=== PATIENT | male | born 1925 | race Caucasian/White ===

== ENCOUNTER 2016-06-01 13:12 | Outpatient (CLI) | payer MEDICARE, OTHER ==
[2016-06-01 13:28] LABS: BASOPHILS # (AUTO) 0.1 10^3/uL (0.0-0.1); EOSINOPHILS # (AUTO) 0.2 10^3/uL (0.0-0.7); EOSINOPHILS % (AUTO) 3.2 %; HCT - HEMATOCRIT 41.2 % (42.0-52.0); HGB - HEMOGLOBIN 13.9 g/dL (14.0-18.0); LYMPHOCYTES # (AUTO) 2.1 10^3/uL (1.5-3.5); MEAN CORPUSCULAR HEMOGLOBIN 30.8 pg (27.0-31.0); MEAN CORPUSCULAR HGB CONC 33.8 g/dL (32.0-36.0); MEAN CORPUSCULAR VOLUME 91.1 fL (80.0-94.0); MEAN PLATELET VOLUME 8.8 fL (7.4-11.4); MONOCYTES # (AUTO) 0.5 10^3/uL (0.0-1.0); MONOCYTES % (AUTO) 8.8 %; NEUTROPHILS # (AUTO) 2.6 10^3/uL (1.5-6.6); NUCLEATED RED BLOOD CELLS AUTO 0.9 /100WBC; RED BLOOD COUNT 4.52 10^6/uL (4.70-6.10); RED CELL DISTRIBUTION WIDTH 13.4 % (12.0-15.0); UNCORRECTED WHITE BLOOD COUNT 5.4 x10^3/uL; WHITE BLOOD COUNT 5.4 x10^3/uL (4.8-10.8)
[2016-06-01 13:41] LABS: ALBUMIN/GLOBULIN RATIO 1.7 (1.0-2.2); BILIRUBIN,TOTAL 0.6 mg/dL (0.2-1.0); BUN - BLOOD UREA NITROGEN 27 mg/dL (6-20); CALCIUM 9.4 mg/dL (8.5-10.3); CARBON DIOXIDE - CO2 25 mmol/L (21-32); CHLORIDE 101 mmol/L (101-111); CHOL/HDL RATIO 2.5 (<5.0); CHOLESTEROL 188 mg/dL; CREATININE 0.8 mg/dL (0.6-1.2); GFR - MDRD 91 (>89); GLUCOSE 103 mg/dL (70-100); HDL CHOLESTEROL 74 mg/dL; LDL/HDL RATIO 1.4 (<3.6); POTASSIUM 4.5 mmol/L (3.5-5.0); SODIUM 135 mmol/L (135-145); TOTAL PROTEIN 6.2 g/dL (6.7-8.2); TRIGLYCERIDES 51 mg/dL; VLDL CHOLESTEROL 10 mg/dL
== END 2016-06-01 13:13 | disposition home or self-care (01) ==
LOC: LAB.R 13:12
PROVIDERS: ATTEND Internal Medicine
DX: I10 Essential (primary) hypertension (principal); Z79.899 Other long term (current) drug therapy; E78.2 Mixed hyperlipidemia
CPT/HCPCS: 80053; 80061; 85025

== ENCOUNTER 2016-10-22 15:12 | Outpatient (CLI) | payer MEDICARE, OTHER | END 2016-10-22 23:59 | disposition critical access hospital (66) | LOC: EMS 15:12 | PROVIDERS: ATTEND Surgery | DX: R40.20 Unspecified coma (principal) | CPT/HCPCS: A0425; A0427 ==

== ENCOUNTER 2016-10-22 15:22 | Observation (INO) | payer MEDICARE, OTHER ==
[2016-10-22] MEDS ORDERED: SODIUM CHLORIDE 0.9% 1,000 ML IV ONE (15:36)
--- NOTE | 2016-10-22 15:41 | ED Physician Documentation ---
History of Present Illness - Stated complaint Stated Complaint: ALOC - Chief complaint Chief Complaint: Cardiac - History obtained from History obtained from: Family, EMS - History of Present Illness Timing: Other (89-year-old gentleman with history of hypertension and Hypercholesterolemia, also ongoing tobacco abuse had a normal morning and then told his he felt dizzy and became syncopal. The ambulance was summoned. He was incontinent of bowel and bladder. On lumber sorter machine evaluation he was hypotensive and bradycardic which improved after the administration of 0.5 mg of atropine. He arrives conscious but altered.) Review of Systems Unable to obtain: Confused PD PAST MEDICAL HISTORY - Past Medical History Cardiovascular: Hypertension, High cholesterol GI: Hemorrhoids - Past Surgical History Past Surgical History: Yes HEENT: Cochlear implant - Present Medications Home Medications: Ambulatory Orders Medication Instructions Recorded Confirmed Lisinopril 10 mg PO DAILY 12/20/14 12/20/14 Pravastatin [Pravachol] 40 mg PO DAILY 10/22/16 10/22/16 - Allergies Allergies/Adverse Reactions: Allergies Allergy/AdvReac Type Severity Reaction Status Date / Time No Known Drug Allergies Allergy Verified 12/20/14 10:02 - Social History Does the pt smoke?: Yes Smoking Status: Current every day smoker Does the pt drink ETOH?: No Does the pt have substance abuse?: No - Immunizations Immunizations are current?: Yes PD ED PE NORMAL - Vitals Vital signs reviewed: Yes - General General: Other (He is able to state the month as October, initially says it is 1917 , but then quickly recovers and says it is 2017. He is unable to provide any useful history though.) - HEENT HEENT: PERRL, EOMI - Neck Neck: Supple, no meningeal sign, No bony TTP - Cardiac Cardiac: RRR, No murmur - Respiratory Respiratory: No respiratory distress, Other (Rhonchorous) - Abdomen Abdomen: Other (He seems pretty tender, there is a suggestion of a pulsatile abdominal mass, although he is not fat by any means.) - Derm Derm: Normal color, Warm and dry - Neuro Neuro: No motor deficit, No sensory deficit - Psych Psych: Normal mood, Normal affect Results - Vitals Vitals: Vital Signs - 24 hr 10/22/16 10/22/16 10/22/16 15:21 16:38 18:49 Temperature 35.5 C L 36.5 C Heart Rate 67 61 65 Respiratory 28 H 18 24 Rate Blood Pressure 122/69 132/65 H 137/70 H O2 Saturation 99 98 96 10/22/16 19:12 Temperature Heart Rate 63 Respiratory 20 Rate Blood Pressure 143/74 H O2 Saturation 95 Oxygen O2 Source Room air - Labs Labs: Laboratory Tests 10/22/16 10/22/16 10/22/16 15:28 15:28 15:28 WBC 3.7 L RBC 4.11 L Hgb 12.5 L Hct 37.2 L MCV 90.5 MCH 30.4 MCHC 33.6 RDW 13.7 Plt Count 149 MPV 8.2 Neut # 2.2 Lymph # 1.1 L Otoe # 0.4 Eos # 0.0 Baso # 0.0 Absolute Nucleated RBC 0.00 Nucleated RBCs 0.0 PT 10.7 INR 1.0 APTT 22.7 L Sodium 136 Potassium 4.0 Chloride 106 Carbon Dioxide 24 Anion Gap 6.0 BUN 29 H Creatinine 1.0 Estimated GFR (MDRD) 71 L Glucose 164 H Lactic Acid Calcium 8.8 Magnesium 2.0 Total Bilirubin 0.6 AST 26 ALT 18 Alkaline Phosphatase 70 Total Creatine Kinase 152 CK-MB (CK-2) Troponin I B-Natriuretic Peptide Total Protein 5.3 L Albumin 3.5 Globulin 1.8 L Albumin/Globulin Ratio 1.9 Lipase 17 L Urine Color Urine Clarity Urine pH Ur Specific Justice Urine Protein Urine Glucose (UA) Urine Ketones Urine Occult Blood Urine Nitrite Urine Bilirubin Urine Urobilinogen Ur Leukocyte Esterase Ur Microscopic Review Urine Culture Comments Ethyl Alcohol < 5.0 10/22/16 10/22/16 10/22/16 15:28 15:28 15:28 WBC RBC Hgb Hct MCV MCH MCHC RDW Plt Count MPV Neut # Lymph # Otoe # Eos # Baso # Absolute Nucleated RBC Nucleated RBCs PT INR APTT Sodium Potassium Chloride Carbon Dioxide Anion Gap BUN Creatinine Estimated GFR (MDRD) Glucose Lactic Acid 1.0 Calcium Magnesium Total Bilirubin AST ALT Alkaline Phosphatase Total Creatine Kinase CK-MB (CK-2) 8.7 H Troponin I < 0.04 B-Natriuretic Peptide 43 Total Protein Albumin Globulin Albumin/Globulin Ratio Lipase Urine Color Urine Clarity Urine pH Ur Specific Justice Urine Protein Urine Glucose (UA) Urine Ketones Urine Occult Blood Urine Nitrite Urine Bilirubin Urine Urobilinogen Ur Leukocyte Esterase Ur Microscopic Review Urine Culture Comments Ethyl Alcohol 10/22/16 17:05 WBC RBC Hgb Hct MCV MCH MCHC RDW Plt Count MPV Neut # Lymph # Otoe # Eos # Baso # Absolute Nucleated RBC Nucleated RBCs PT INR APTT Sodium Potassium Chloride Carbon Dioxide Anion Gap BUN Creatinine Estimated GFR (MDRD) Glucose Lactic Acid Calcium Magnesium Total Bilirubin AST ALT Alkaline Phosphatase Total Creatine Kinase CK-MB (CK-2) Troponin I B-Natriuretic Peptide Total Protein Albumin Globulin Albumin/Globulin Ratio Lipase Urine Color YELLOW Urine Clarity CLEAR Urine pH 7.5 Ur Specific Justice 1.015 Urine Protein NEGATIVE Urine Glucose (UA) NEGATIVE Urine Ketones NEGATIVE Urine Occult Blood NEGATIVE Urine Nitrite NEGATIVE Urine Bilirubin NEGATIVE Urine Urobilinogen 0.2 (NORMAL) Ur Leukocyte Esterase NEGATIVE Ur Microscopic Review NOT INDICATED Urine Culture Comments NOT INDICATED Ethyl Alcohol - Rads (name of study) 1v chest Radiology: Prelim report reviewed (pulm edema, mild) Abd sono Radiology: EMP read contemporaneously (Liver and kidney cysts, normal aorta grossly, hypoechoic right upper quadrant posterior area measuring 15.7 cm of unclear etiology.) CT head and abdomen Radiology: EMP read contemporaneously (Head shows atrophy without acute disease , abdomen is full of renal cysts and a right inguinal hernia without obstruction.) PD MEDICAL DECISION MAKING - ED course ED course: 89-year-old gentleman presents after a syncopal episode with hypotension on seen , and slow return to neurologic baseline. No significant objective findings here. Abd was TTP but no findings on imaging. Spoke with Dr Mercado for obs at 1943 Departure - Departure Disposition: ED Place in Observation Clinical Impression: Syncope Qualifiers: Syncope type: unspecified Qualified Code(s): R55 - Syncope and collapse Abdominal tenderness Qualifiers: Abdominal location: generalized Presence of rebound: absent Qualified Code(s): R10.817 - Generalized abdominal tenderness Condition: Stable
[2016-10-22 15:46] LABS: BASOPHILS % (AUTO) 0.8 %; EOSINOPHILS % (AUTO) 1.2 %; HCT - HEMATOCRIT 37.2 % (42.0-52.0); HGB - HEMOGLOBIN 12.5 g/dL (14.0-18.0); LYMPHOCYTES # (AUTO) 1.1 10^3/uL (1.5-3.5); LYMPHOCYTES % (AUTO) 30.5 %; MEAN CORPUSCULAR HEMOGLOBIN 30.4 pg (27.0-31.0); MEAN CORPUSCULAR HGB CONC 33.6 g/dL (32.0-36.0); MEAN CORPUSCULAR VOLUME 90.5 fL (80.0-94.0); MEAN PLATELET VOLUME 8.2 fL (7.4-11.4); MONOCYTES # (AUTO) 0.4 10^3/uL (0.0-1.0); MONOCYTES % (AUTO) 9.7 %; NEUTROPHILS # (AUTO) 2.2 10^3/uL (1.5-6.6); NEUTROPHILS % (AUTO) 57.8 %; RED BLOOD COUNT 4.11 10^6/uL (4.70-6.10); RED CELL DISTRIBUTION WIDTH 13.7 % (12.0-15.0); UNCORRECTED WHITE BLOOD COUNT 3.7 x10^3/uL; WHITE BLOOD COUNT 3.7 x10^3/uL (4.8-10.8)
[2016-10-22] MEDS ORDERED: ONDANSETRON 4 MG/2 ML VIAL IVP STA (15:46)
[2016-10-22 15:53] LABS: PT - PROTHROMBIN TIME 10.7 secs (9.9-12.6)
[2016-10-22 15:59] LABS: ALBUMIN/GLOBULIN RATIO 1.9 (1.0-2.2); BILIRUBIN,TOTAL 0.6 mg/dL (0.2-1.0); BUN - BLOOD UREA NITROGEN 29 mg/dL (6-20); CALCIUM 8.8 mg/dL (8.5-10.3); CARBON DIOXIDE - CO2 24 mmol/L (21-32); CHLORIDE 106 mmol/L (101-111); GFR - MDRD 71 (>89); GLUCOSE 164 mg/dL (70-100); LIPASE 17 U/L (22-51); SODIUM 136 mmol/L (135-145); TOTAL PROTEIN 5.3 g/dL (6.7-8.2)
[2016-10-22 16:01] LABS: PARTIAL THROMBOPLASTIN TIME 22.7 secs (24.9-33.3)
[2016-10-22 16:05] LABS: CREATINE KINASE MB 8.7 ng/mL (0.6-6.3)
[2016-10-22] MEDS ORDERED: ONDANSETRON 4 MG/2 ML VIAL ONE (16:07)
[2016-10-22 16:08] LABS: TROPONIN I < 0.04 ng/mL (<0.49)
--- NOTE | 2016-10-22 16:25 | XRAY Preliminary Report ---
Exam: XR Chest 1 View IMPRESSION: Mild pulmonary edema pattern, new since 12/20/2014. [facility] SITE ID: [id number]
--- NOTE | 2016-10-22 16:28 | XRAY Report ---
EXAM: CHEST RADIOGRAPHY EXAM DATE: 10/22/2016 04:15 PM. CLINICAL HISTORY: Syncope. COMPARISON: 12/20/2014. TECHNIQUE: 1 view. FINDINGS: Lungs/Pleura: Mild pulmonary edema pattern present. Mediastinum: Within exam limitations, cardiomediastinal contour is normal. Other: None. IMPRESSION: Mild pulmonary edema pattern, new since 12/20/2014. [facility] Referring Provider Line: [phone] SITE ID: [id number]
[2016-10-22 17:16] LABS: BILIRUBIN,URINE NEGATIVE (NEGATIVE); PH,URINE 7.5 PH (5.0-7.5)
[2016-10-22 17:20] LABS: UA CHARGE (STRIP ONLY) YES; UR CULTURE IF IND NOT INDICATED
--- NOTE | 2016-10-22 17:37 | Ultrasound Preliminary Report ---
Exam: US Abdomen Complete IMPRESSION: 1. Technically limited study given constipation motion and patient limitations. 2. Lobular anechoic left liver cyst with thin septation measuring up to 4.7 cm. No mural nodules. 3. No sonographic evidence of acute cholecystitis or cholelithiasis. Small amount of pericholecystic fluid. Normal common bile duct. 4. Multiple bilateral renal cysts. Echogenic thinned cortex. Findings suggestive of chronic renal ins ufficiency. No stones or hydronephrosis. 5. Pancreas, abdominal aorta and IVC not well seen due to bowel gas. 6. Indeterminant hypoechoic region in the right upper quadrant extending posterior to the right kidne y measuring over 15.7 cm. Potentially, this could represent a large pleural effusion versus a large r enal cyst. CT would be confirmatory. [facility] SITE ID: [id number]
--- NOTE | 2016-10-22 18:06 | Ultrasound Report ---
EXAM: ABDOMEN ULTRASOUND EXAM DATE: 10/22/2016 05:02 PM. CLINICAL HISTORY: Syncope. COMPARISON: 12/18/2006. TECHNIQUE: Real-time scanning was performed with static images obtained. FINDINGS: Liver: Lobular anechoic left liver cyst measuring 4.7 x 3.4 x 4.5 cm containing a thin septation. No mural nodules identified. Liver parenchyma is heterogeneous. Possible intrahepatic biliary dilation n ot well characterized. 17.2 cm. Main portal vein flow: Hepatopetal. Gallbladder: No gallstones. No evidence of gallbladder wall thickening or sonographic Ovalle sign. Sm all amount of pericholecystic fluid noted. Gallbladder is distended. Biliary System: Common bile duct measures 5 mm. No intrahepatic or extrahepatic ductal dilatation. Pancreas: Poorly visualized. Kidneys: Right: 13.2 cm longitudinally. Echogenic renal cortex with evidence of cortical thinning. Multiple cy sts are present with the largest measuring up to 5.2 cm. No hydronephrosis or stones. Left: 12.7 cm longitudinally. Echogenic renal cortex with evidence of cortical thinning. Multiple cys ts are present with the largest measuring 7 cm. No hydronephrosis or stones. Spleen: 11.2 x 3.6 x 9.5 cm. Normal in size and echotexture. Not well seen. Aorta and Inferior Vena Cava: Aorta partially obscured by bowel gas. Abdominal aorta is ectatic. Comment: Study limited due to constant patient motion. Indeterminate hypoechoic rounded structure labeled the right chest region extending posterior to the right kidney measuring 13.7 x 6.3 x 10.1 cm. IMPRESSION: 1. Technically limited study given constant patient motion and patient limitations. 2. Lobular anechoic left liver cyst with thin septation measuring up to 4.7 cm. No mural nodules. 3. No sonographic evidence of acute cholecystitis or cholelithiasis. Small amount of pericholecystic fluid. Normal common bile duct. 4. Multiple bilateral renal cysts. Echogenic thinned cortex. Findings suggestive of chronic renal ins ufficiency. No stones or hydronephrosis. 5. Pancreas, abdominal aorta and IVC not well seen due to bowel gas. 6. Indeterminant hypoechoic region in the right upper quadrant extending posterior to the right kidne y measuring over 15.7 cm. Potentially, this could represent a large pleural effusion versus a large r enal cyst. CT would be confirmatory. [facility] Referring Provider Line: [phone] SITE ID: [id number]
[2016-10-22] MEDS ORDERED: IOPAMIDOL-300 100 ML VIAL IVP ONE (18:48)
--- NOTE | 2016-10-22 19:17 | CT Preliminary Report ---
Exam: CT Head W/O IMPRESSION: Generalized age-related cortical atrophic changes without evidence of acute intracranial abnormality. [facility] SITE ID: [id number]
--- NOTE | 2016-10-22 19:31 | CT Preliminary Report ---
Exam: CT Abdomen/Pelvis W/ IMPRESSION: 1. Extensive bilateral renal cysts. No retroperitoneal fluid collections. The anechoic structure post erior to the right kidney is a large exophytic renal cysts. 2. Small bowel containing right inguinal hernia without obstruction. [facility] SITE ID: [id number]
--- NOTE | 2016-10-22 19:46 | CT Report ---
EXAM: CT ABDOMEN AND PELVIS EXAM DATE: 10/22/2016 06:48 PM. CLINICAL HISTORY: Syncope. COMPARISONS: 10/22/2016. TECHNIQUE: Routine helical CT imaging was performed through the abdomen and pelvis. IV contrast: 100 mL Isovue 370. Enteric contrast: No. Reconstructions: Coronal and sagittal. In accordance with CT protocol optimization, one or more of the following dose reduction techniques w ere utilized for this exam: automated exposure control, adjustment of mA and/or KV based on patient s ize, or use of iterative reconstructive technique. FINDINGS: Lung Bases: Mild cardiac enlargement. Small hiatal hernia. No pericardial effusion. Small left pleura l effusion. Liver: Redemonstration of a 5.4 cm septated left liver cyst. No mass or intrahepatic bile duct dilati on is noted on CT. Portal vein is patent. Gallbladder/Bile Ducts: Unremarkable. Spleen: Normal. Pancreas: Normal. Adrenal Glands: Normal. Kidneys: Normal. No masses or hydronephrosis. Extensive bilateral simple renal cysts. The anechoic st ructure posterior to the right kidney is a large exophytic cyst. No mural nodules or thickened septat ions. Peritoneal Cavity/Bowel: Normal. No free fluid, free air or adenopathy. No masses or acute inflammato ry process. Appendix not seen. No right lower quadrant inflammation. Herniation of a single loop of s mall bowel into the right inguinal canal. No dilation to suggest obstruction. Pelvic Organs: Mild to moderate prostate gland enlargement with central coarse prostate calcification s. Bladder is distended but otherwise normal. No pelvic mass or adenopathy. Vasculature: Diffuse atheromatous plaques are present in the abdominal aorta and branch vessels. No a neurysm. Normal IVC. Bones: Diffuse degenerative disk disease with convex to the right curvature of the thoracolumbar spin e with a rotatory component. No osteoblastic or osteolytic lesions are noted. 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 Other: None. IMPRESSION: 1. Extensive bilateral renal cysts. No retroperitoneal fluid collections. The anechoic structure post erior to the right kidney is a large exophytic renal cyst. 2. Small bowel containing right inguinal hernia without obstruction. [facility] Referring Provider Line: [phone] SITE ID: [id number]
--- NOTE | 2016-10-22 19:47 | CT Report ---
EXAM: CT HEAD EXAM DATE: 10/22/2016 06:36 PM. CLINICAL HISTORY: Syncope, altered. COMPARISON: None. TECHNIQUE: Multiaxial CT images were obtained from the foramen magnum to the vertex. IV contrast: Non e. Reformats: Coronal. In accordance with CT protocol optimization, one or more of the following dose reduction techniques w ere utilized for this exam: automated exposure control, adjustment of mA and/or KV based on patient s ize, or use of iterative reconstructive technique. FINDINGS: Parenchyma: No intraparenchymal hemorrhage. No evidence of mass, midline shift, or CT findings of acu te infarction. Sandoval-white differentiation is distinct. Extraaxial Spaces: Normal for age. No subdural or epidural collections identified. Ventricles: The ventricles and cortical sulci are enlarged, consistent with age-related tissue loss. Sinuses: Bilateral mastoid fluid. Postoperative changes are noted in the left middle ear. No air-flui d levels are noted in the paranasal sinuses. Bones: No evidence of fracture or calvarial defect. Other: Diffuse chronic microangiopathic white matter changes are evident. Significant streak artifact s related to the cochlear implant are noted. IMPRESSION: Generalized age-related cortical atrophic changes without evidence of acute intracranial abnormality. [facility] Referring Provider Line: [phone] SITE ID: [id number]
[2016-10-22] MEDS ORDERED: IBUPROFEN 600 MG TABLET PO PRN (19:49)
[2016-10-22] MEDS ORDERED: PROCHLORPERAZINE 10 MG/2 ML VIAL IVP PRN (19:49)
[2016-10-22] MEDS ORDERED: SODIUM CHLORIDE FLUSH 0.9% 10 ML SYRINGE IVP PRN (19:49)
[2016-10-22] MEDS ORDERED: ONDANSETRON 4 MG/2 ML VIAL IVP PRN (19:49)
[2016-10-22] MEDS ORDERED: ACETAMINOPHEN 325 MG TABLET PO PRN (19:49)
--- NOTE | 2016-10-22 20:16 | HISTORY & PHYSICAL EXAMINATION ---
Chief Complaint - Chief Complaint Chief Complaint: syncope History of Present Illness - Admitted From Admitted From:: Emergency department - History Obtained From Records Reviewed: yes History obtained from: Patientn and medical records Exam Limitations: None - History of Present Illness HPI Comment/Other: Patient is an 89-year-old gentleman with a past medical history significant for hypertension, hyperlipidemia, cochlear implant, osteoarthritis of bilateral knees and tobacco abuse who presents to the emergency department with a chief complaint of syncope. The patient states he was in his normal state of health until this afternoon when he was helping his clean the toilet. He states that all of a sudden he felt nauseous and lightheaded so he went and sat down on the chair. He states the next and he remembers is that he was here in the emergency department. The patient's states that she saw him sitting in the chair and he was staring off into space. She states that she tried to call out to him but he was not responding. She states that she slapped him a few times and he still did not respond. She then decided to call 911. The patient states that he was in his normal state of health the last few days. He denies any headaches, blurred vision, runny nose, sore throat, chest pain, palpitations, or popping, PND, increased lower extremity swelling, shortness of air, abdominal pain, diarrhea, urinary urgency frequency or dysuria or focal neurologic deficits. The patient states that he takes MiraLAX daily and has one bowel movement a day this had not changed recently. He states he's been eating well and drinking well. He denies any changes in his appetite or any recent unintentional weight loss. On arrival of EMS they found an unconscious elderly gentleman who is not responding. He however did have a pulse his heart rate was 40 and blood pressure was 60/40. EMS gave him one dose of atropine and IV fluid. After this the patient became more responsive however he was still confused and not in his normal state of mentation. On arrival to the emergency department the patient was afebrile his vital signs were stable, he was slightly tachypneic. Initially in the emergency department the patient was mildly confused. On examination he did not have any focal neurologic deficits but was noted to have abdominal tenderness. The patient's lab work was significant for slight leukopenic and lymphopenia. The patient's electrolytes were within normal limits, his glucose was normal, troponin was negative, UA and alcohol level were negative. The patient eventually returned back to his normal mentation. He had no events on telemetry while in the emergency department. His chest x-ray showed some mild pulmonary edema but otherwise showed no acute infiltrates. Given his abdominal tenderness the patient had an abdominal ultrasound which did not show any evidence of acute cholecystitis or cholelithiasis. There was a finding of renal and liver cysts. The patient also underwent a CT of his abdomen pelvis which showed extensive bilateral renal cysts and a small bowel containing right inguinal hernia without obstruction. A CT scan of the patient's head revealed generalized age- related cortical atrophic changes without evidence of intracranial abnormality. Given the patient's syncopal episode he was placed in observation for further telemetry monitoring, echocardiogram and carotid Doppler. The patient had a similar syncopal episode a few years back and had a negative workup at that time. Review of Systems - Constitutional Constitutional: denies: Fatigue, Fever, Chills, Malaise, Weakness, Poor appetite , Diaphoresis, Night sweats, Weight gain, Weight loss - Eyes Eyes: denies: Pain, Blurred vision, Spots in vision, Vision loss, Dipolpia - Ears, Nose & Throat Ears, Nose & Throat: reports: Hearing loss, Hearing aids, Dentures. denies: Ear pain, Tinnitus, Vertigo, Nasal pain, Nasal obstruction, Nasal congestion, Sore throat, Hoarseness, Mouth lesions, Bleeding gums - Cardiovascular Cariovascular: reports: Syncope. denies: Irregular heart rate, Palpitations, Chest pain, Edema, Lightheadedness, Exertional dyspnea, Decr. exercise tolerance , Orthopnea - Respiratory Respiratory: denies: Cough, Sputum production, Wheezing, Snoring, Hemoptysis, Orthopnea, SOB at rest, SOB with exertion, Pleuritic pain - Gastrointestinal Gastrointestinal: reports: Abdominal pain, Nausea. denies: Abdominal distention , Constipation, Diarrhea, Change in bowel habits, Rectal bleeding, Black stools , Bloody stools, Vomiting, Bile emesis, Michael blood emesis, Coffee grounds emesis, Bloating, Poor appetite - Genitourinary Genitourinary: denies: Dysuria, Frequency, Urgency, Hematuria, Flank pain - Musculoskeletal Musculoskeletal: reports: Joint pain (kness). denies: Muscle pain, Back pain, Muscle aches, Stiffness, Limited range of motion, Muscle weakness - Integumentary Integumentary: denies: Rash, Pruritis, Lesions, Dryness - Neurological Neurological: denies: General weakness, Focal weakness, Headache, Dizziness, Numbness, Memory problems, Abnormal gait, Seizures, Slurred speech - Psychiatric Psychiatric: denies: Depression, Anxiety, Suicidal - Endocrine Endocrine: denies: Polyuria, Polydypsia, Polyphagia, Intolerance to cold, Intolerance to heat - Hematologic/Lymphatic Hematologic/Lymphatic: denies: Anemia, Bruising, Petechiae, Lymphadenopathy History - Past Medical History Cardiovascular: reports: Hypertension, High cholesterol GI: reports: Hemorrhoids HEENT: reports: Chronic hearing loss MRSA Hx?: No Other Past Medical History: 1. Hypertension. 2. Hyperlipidemia. 3. Cochlear implant. 4. Tobacco abuse. 5. Osteoarthritis of bilateral knees - Past Surgical History HEENT: reports: Cochlear implant - Family & Social History Family History: Mother: (Mom of old age at 98 and dad of lung cancer), Father: , Cancer (Lung) Family History Comment/Other: Patient's mother of old age at 98 years old. Patient's father of lung cancer in his 70s. Living arrangement: At home Living Situation: With spouse/s.o. Social History Notes: The patient lives with his in [facility]. They have a bilevel house. The patient is fully independent he walks without any assistance device. Him and his been for 55 years. The patient has 3 children who are all grown. He has 2 great-grandchildren. 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 The patient smokes a pipe 2-3 times a day. He states that he gets to about a pound of tobacco and 52 days. He drinks a glass of wine with his every evening. He denies any illicit drug use. - Substance History Use: Uses substance without health or social issues: Tobacco Abuse: Recurrent use of substance despite neg consequences: NONE Dependence: Experiences withdrawal or developed tolerances: NONE Tobacco Details: Other (tobacco with a pipe) - POLST Patient has POLST: No POLST Status: Full Code Meds/Allgy - Home Medications Home Medications: Ambulatory Orders Medication Instructions Recorded Confirmed Lisinopril 10 mg PO DAILY 12/20/14 12/20/14 Pravastatin [Pravachol] 40 mg PO DAILY 10/22/16 10/22/16 - Allergies Allergies/Adverse Reactions: Allergies Allergy/AdvReac Type Severity Reaction Status Date / Time No Known Drug Allergies Allergy Verified 12/20/14 10:02 Exam - Vital Signs Reviewed Vital Signs: Yes Vital Signs: Vital Signs x48h Temp Pulse Resp BP Pulse Ox 10/22/16 19:12 63 20 143/74 H 95 10/22/16 18:49 36.5 C 65 24 137/70 H 96 10/22/16 16:38 61 18 132/65 H 98 10/22/16 15:21 35.5 C L 67 28 H 122/69 99 - Physical Exam General Appearance: positive: No acute distress, Alert Eyes Bilateral: positive: Normal inspection, PERRL, EOMI. negative: No lid inflammation, Conjunctivae nml, No scleral icterus ENT: positive: ENT inspection nml, Pharynx nml, Dry mucous membranes, Other ( Bilateral hearing aids). negative: Purulent nasal drainage, Pharyngeal erythema , Oral lesions Neck: positive: Nml inspection, Thyroid nml, No JVD, Trachea midline. negative : Thyromegaly, Lymphadenopathy (R), Lymphadenopathy (L), Carotid bruit, Tracheal deviation Respiratory: positive: Chest non-tender, No respiratory distress, Breath sounds nml. negative: Wheezes, Rales, Rhonchi Cardiovascular: positive: Regular rate & rhythm, No murmur, No gallop Peripheral Pulses: positive: 2+ Abdomen: positive: Non-tender, No organomegaly, Nml bowel sounds, No distention. negative: Tenderness, Guarding, Rebound, Hepatomegaly Back: positive: Nml inspection. negative: CVA tenderness (R), CVA tenderness (L ) Skin: positive: Color nml, No rash, Warm. negative: Cyanosis, Pallor Extremities: positive: Non-tender, Full ROM, Nml appearance, Pedal edema (Trace right pedal edema) Neurologic/Psychiatric: positive: Oriented x3, CN's nml (2-12), Motor nml, Sensation nml, Mood/affect nml Conclusion/Plan - Problem List (1) Syncope Conclusion/Plan: Patient presented to the emergency department after a syncopal episode. Episode occurred while the patient was sitting on the couch he began to stare off and became unresponsive. The patient did respond to atropine and IV fluid. When found by paramedics he was hypotensive and bradycardic. After the event the patient did have a short period of confusion but now has returned back to his normal mental status CT head was negative, troponin negative so far no events on telemetry monitoring. Patient likely had vasovagal syncope but there is no obvious stressor that would have caused him to have vasovagal syncope unless it was from long- standing while trying to clean the toilet. Patient may have been dehydrated although he has not had any changes in his by mouth intake or diarrhea or vomiting. This may have been a seizure although he did not have any tonic- clonic activity. Unlikely to be a TIA. Could have been secondary to an arrhythmia although patient has no cardiac history and has been normal on telemetry since presentation. Plan: Placed in observation and monitor Telemetry monitoring Echocardiogram Carotid Doppler If all test negative patient may need to followup with his PCP for a Holter monitor Qualifiers: Syncope type: unspecified Qualified Code(s): R55 - Syncope and collapse (2) Abdominal tenderness Conclusion/Plan: Present initially when patient arrived in the emergency department Patient had associated nausea Both abdominal tenderness and nausea have resolved Abdominal ultrasound and CT scan do not reveal any obvious source for the tenderness. The patient does have renal cysts. Continue to monitor Qualifiers: Abdominal location: generalized Presence of rebound: absent Qualified Code(s): R10.817 - Generalized abdominal tenderness (3) Hypertension Conclusion/Plan: Patient was hypotensive at home after syncopal episode. He is no longer on any antihypertensive medications. Give IV fluids Monitor blood pressure closely Qualifiers: Hypertension type: essential hypertension Qualified Code(s): I10 - Essential (primary) hypertension (4) Hyperlipidemia Conclusion/Plan: Patient is on Pravachol at home Stable Place on Lipitor while hospitalized. (5) Tobacco abuse Conclusion/Plan: Patient counselled on need to quit smoking Patient understands the risks involved with continued tobacco abuse Offered nicotine patch (6) Prophylactic use of low molecular weight heparin for venous thromboembolism Conclusion/Plan: place on Lovenox while hospitalized - Lab Results Lab results reviewed: Yes Fish Bones: 10/22/16 15:28 10/22/16 15:28 Other Lab Results: Laboratory Results - last 24 hr 10/22/16 10/22/16 10/22/16 15:28 15:28 15:28 WBC 3.7 L RBC 4.11 L Hgb 12.5 L Hct 37.2 L MCV 90.5 MCH 30.4 MCHC 33.6 RDW 13.7 Plt Count 149 MPV 8.2 Neut # 2.2 Lymph # 1.1 L Liberty # 0.4 Eos # 0.0 Baso # 0.0 Absolute Nucleated RBC 0.00 Nucleated RBCs 0.0 PT 10.7 INR 1.0 APTT 22.7 L Sodium 136 Potassium 4.0 Chloride 106 Carbon Dioxide 24 Anion Gap 6.0 BUN 29 H Creatinine 1.0 Estimated GFR (MDRD) 71 L Glucose 164 H Lactic Acid Calcium 8.8 Magnesium 2.0 Total Bilirubin 0.6 AST 26 ALT 18 Alkaline Phosphatase 70 Total Creatine Kinase 152 CK-MB (CK-2) Troponin I B-Natriuretic Peptide Total Protein 5.3 L Albumin 3.5 Globulin 1.8 L Albumin/Globulin Ratio 1.9 Lipase 17 L Urine Color Urine Clarity Urine pH Ur Specific [place] Urine Protein Urine Glucose (UA) Urine Ketones Urine Occult Blood Urine Nitrite Urine Bilirubin Urine Urobilinogen Ur Leukocyte Esterase Ur Microscopic Review Urine Culture Comments Ethyl Alcohol < 5.0 10/22/16 10/22/16 10/22/16 15:28 15:28 15:28 WBC RBC Hgb Hct MCV MCH MCHC RDW Plt Count MPV Neut # Lymph # Liberty # Eos # Baso # Absolute Nucleated RBC Nucleated RBCs PT INR APTT Sodium Potassium Chloride Carbon Dioxide Anion Gap BUN Creatinine Estimated GFR (MDRD) Glucose Lactic Acid 1.0 Calcium Magnesium Total Bilirubin AST ALT Alkaline Phosphatase Total Creatine Kinase CK-MB (CK-2) 8.7 H Troponin I < 0.04 B-Natriuretic Peptide 43 Total Protein Albumin Globulin Albumin/Globulin Ratio Lipase Urine Color Urine Clarity Urine pH Ur Specific [place] Urine Protein Urine Glucose (UA) Urine Ketones Urine Occult Blood Urine Nitrite Urine Bilirubin Urine Urobilinogen Ur Leukocyte Esterase Ur Microscopic Review Urine Culture Comments Ethyl Alcohol 10/22/16 17:05 WBC RBC Hgb Hct MCV MCH MCHC RDW Plt Count MPV Neut # Lymph # Liberty # Eos # Baso # Absolute Nucleated RBC Nucleated RBCs PT INR APTT Sodium Potassium Chloride Carbon Dioxide Anion Gap BUN Creatinine Estimated GFR (MDRD) Glucose Lactic Acid Calcium Magnesium Total Bilirubin AST ALT Alkaline Phosphatase Total Creatine Kinase CK-MB (CK-2) Troponin I B-Natriuretic Peptide Total Protein Albumin Globulin Albumin/Globulin Ratio Lipase Urine Color YELLOW Urine Clarity CLEAR Urine pH 7.5 Ur Specific [place] 1.015 Urine Protein NEGATIVE Urine Glucose (UA) NEGATIVE Urine Ketones NEGATIVE Urine Occult Blood NEGATIVE Urine Nitrite NEGATIVE Urine Bilirubin NEGATIVE Urine Urobilinogen 0.2 (NORMAL) Ur Leukocyte Esterase NEGATIVE Ur Microscopic Review NOT INDICATED Urine Culture Comments NOT INDICATED Ethyl Alcohol - Diagnostic Imaging Results Diagnostic Imaging Results: positive: Final report reviewed, See rad report Diagnostic Imaging Results Comments: Laboratory Results WBC 3.7 x10^3/uL (4.8-10.8) L 10/22/16 15:28 RBC 4.11 10^6/uL (4.70-6.10) L 10/22/16 15:28 Hgb 12.5 g/dL (14.0-18.0) L 10/22/16 15:28 Hct 37.2 % (42.0-52.0) L 10/22/16 15:28 MCV 90.5 fL (80.0-94.0) 10/22/16 15:28 MCH 30.4 pg (27.0-31.0) 10/22/16 15:28 MCHC 33.6 g/dL (32.0-36.0) 10/22/16 15:28 RDW 13.7 % (12.0-15.0) 10/22/16 15:28 Plt Count 149 10^3/uL (130-450) 10/22/16 15:28 MPV 8.2 fL (7.4-11.4) 10/22/16 15:28 Neut # 2.2 10^3/uL (1.5-6.6) 10/22/16 15:28 Lymph # 1.1 10^3/uL (1.5-3.5) L 10/22/16 15:28 Liberty # 0.4 10^3/uL (0.0-1.0) 10/22/16 15:28 Eos # 0.0 10^3/uL (0.0-0.7) 10/22/16 15:28 Baso # 0.0 10^3/uL (0.0-0.1) 10/22/16 15:28 Absolute Nucleated RBC 0.00 x10^3/uL 10/22/16 15:28 Nucleated RBCs 0.0 /100WBC 10/22/16 15:28 PT 10.7 secs (9.9-12.6) 10/22/16 15:28 INR 1.0 (0.8-1.2) 10/22/16 15:28 APTT 22.7 secs (24.9-33.3) L 10/22/16 15:28 Sodium 136 mmol/L (135-145) 10/22/16 15:28 Potassium 4.0 mmol/L (3.5-5.0) 10/22/16 15:28 Chloride 106 mmol/L (101-111) 10/22/16 15:28 Carbon Dioxide 24 mmol/L (21-32) 10/22/16 15:28 Anion Gap 6.0 (6-13) 10/22/16 15:28 BUN 29 mg/dL (6-20) H 10/22/16 15:28 Creatinine 1.0 mg/dL (0.6-1.2) 10/22/16 15:28 Estimated GFR (MDRD) 71 (>89) L 10/22/16 15:28 Glucose 164 mg/dL (70-100) H 10/22/16 15:28 Lactic Acid 1.0 mmol/L (0.5-2.2) 10/22/16 15:28 Calcium 8.8 mg/dL (8.5-10.3) 10/22/16 15:28 Magnesium 2.0 mg/dL (1.7-2.8) 10/22/16 15:28 Total Bilirubin 0.6 mg/dL (0.2-1.0) 10/22/16 15:28 AST 26 IU/L (10-42) 10/22/16 15:28 ALT 18 IU/L (10-60) 10/22/16 15:28 Alkaline Phosphatase 70 IU/L (42-121) 10/22/16 15:28 Total Creatine Kinase 152 IU/L (22-269) 10/22/16 15:28 CK-MB (CK-2) 8.7 ng/mL (0.6-6.3) H 10/22/16 15:28 Troponin I < 0.04 ng/mL (<0.49) 10/22/16 15:28 B-Natriuretic Peptide 43 pg/mL (5-100) 10/22/16 15:28 Total Protein 5.3 g/dL (6.7-8.2) L 10/22/16 15:28 Albumin 3.5 g/dL (3.2-5.5) 10/22/16 15:28 Globulin 1.8 g/dL (2.1-4.2) L 10/22/16 15:28 Albumin/Globulin Ratio 1.9 (1.0-2.2) 10/22/16 15:28 Lipase 17 U/L (22-51) L 10/22/16 15:28 Urine Color YELLOW 10/22/16 17:05 Urine Clarity CLEAR (CLEAR) 10/22/16 17:05 Urine pH 7.5 PH (5.0-7.5) 10/22/16 17:05 Ur Specific [place] 1.015 (1.002-1.030) 10/22/16 17:05 Urine Protein NEGATIVE mg/dL (NEGATIVE) 10/22/16 17:05 Urine Glucose (UA) NEGATIVE mg/dL (NEGATIVE) 10/22/16 17:05 Urine Ketones NEGATIVE mg/dL (NEGATIVE) 10/22/16 17:05 Urine Occult Blood NEGATIVE (NEGATIVE) 10/22/16 17:05 Urine Nitrite NEGATIVE (NEGATIVE) 10/22/16 17:05 Urine Bilirubin NEGATIVE (NEGATIVE) 10/22/16 17:05 Urine Urobilinogen 0.2 (NORMAL) E.U./dL (NORMAL) 10/22/16 17:05 Ur Leukocyte Esterase NEGATIVE (NEGATIVE) 10/22/16 17:05 Ur Microscopic Review NOT INDICATED 10/22/16 17:05 Urine Culture Comments NOT INDICATED 10/22/16 17:05 Ethyl Alcohol < 5.0 mg/dL 10/22/16 15:28 Issues/Core Measures - Anticipated LOS Anticipated Stay Length: Less than 2 midnights - DVT/VTE - Prophylaxis VTE/DVT Prophylaxis med ordered at admit?: Yes
[2016-10-22] MEDS ORDERED: ATORVASTATIN 40 MG TABLET PO SCH (21:00)
[2016-10-22] MEDS: SODIUM CHLORIDE FLUSH 0.9% 10 ML SYRINGE IVP SCH (21:20)
[2016-10-22] MEDS: SODIUM CHLORIDE 0.9% 1,000 ML IV SCH (21:21)
--- NOTE | 2016-10-22 23:32 | Ultrasound Preliminary Report ---
Exam: US Carotid Doppler Complete IMPRESSION: 1. There is calcified atheromatous plaque at the bilateral carotid bifurcations. 2. There is no evidence of hemodynamically significant carotid artery stenosis. Validated velocity measurements with angiographic measurements and velocity criteria are extrapolated from diameter data as defined by the Society of Radiologists in Ultrasound Consensus Conference Radi ology 2003; 229;340-346. [facility] SITE ID: [id number]
--- NOTE | 2016-10-22 23:51 | Ultrasound Report ---
EXAM: CAROTID DOPPLER ULTRASOUND EXAM DATE: 10/22/2016 11:09 PM. CLINICAL HISTORY: Syncope. COMPARISON: None. TECHNIQUE: Real-time sonographic vascular imaging was performed by the oil rig roughneck through the caroti d arterial system with a linear transducer utilizing color-flow, Doppler flow and spectral analysis. Multiple software support representative static images were saved for review. FINDINGS: Right: RCCA Prox: PSV 49.1 cm/sec. RCCA Dist: PSV 54.5 Cm/Sec, EDV 10.4 cm/sec. RECA: PSV 115 cm/sec. R Bulb: PSV 63.7 cm/sec, EDV 14.7 cm/sec, ICA/CCA ratio 1.2. JENIFER Prox: PSV 65.4 cm/sec, EDV 13.5 cm/sec, ICA/CCA ratio 1.2. JENIFER Mid: PSV 64.4 cm/sec, EDV 18.9 Cm/Sec, ICA/CCA ratio 1.2. JENIFER Dist: PSV 80.1 cm/sec, EDV 21.6 cm/sec, ICA/CCA ratio 1.5. RVA: PSV 35.5 cm/sec. RVA flow direction: Antegrade. Left: LCCA Prox: PSV 63.0 cm/sec. LCCA Dist: PSV 56.1 cm/sec, EDV 13.9 cm/sec. LECA: PSV 103.8 cm/sec. L Bulb: PSV 36.6 cm/sec, EDV 15.3 cm/sec, ICA/CCA ratio 0.7. LICA Prox: PSV 56.6 cm/sec, EDV 13 cm/sec, ICA/CCA ratio 1.0. LICA Mid: PSV 68.6 cm/sec, EDV 18.5 cm/sec, ICA/CCA ratio 1.2. LICA Dist: PSV 44.0 cm/sec, EDV 11.4 cm/sec, ICA/CCA ratio 0.8. LVA: PSV 48.7 cm/sec. LVA flow direction: Antegrade. Other: None. IMPRESSION: 1. There is calcified atheromatous plaque at the bilateral carotid bifurcations. 2. There is no evidence of hemodynamically significant carotid artery stenosis. Validated velocity measurements with angiographic measurements and velocity criteria are extrapolated from diameter data as defined by the Society of Radiologists in Ultrasound Consensus Conference Radi ology 2003; 229;340-346. [facility] Referring Provider Line: [phone] SITE ID: [id number]
[2016-10-23 05:20] LABS: BASOPHILS % (AUTO) 0.7 %; EOSINOPHILS # (AUTO) 0.1 10^3/uL (0.0-0.7); EOSINOPHILS % (AUTO) 1.1 %; HCT - HEMATOCRIT 35.2 % (42.0-52.0); HGB - HEMOGLOBIN 11.9 g/dL (14.0-18.0); LYMPHOCYTES # (AUTO) 1.2 10^3/uL (1.5-3.5); LYMPHOCYTES % (AUTO) 24.5 %; MEAN CORPUSCULAR HEMOGLOBIN 30.7 pg (27.0-31.0); MEAN CORPUSCULAR HGB CONC 33.9 g/dL (32.0-36.0); MEAN CORPUSCULAR VOLUME 90.6 fL (80.0-94.0); MEAN PLATELET VOLUME 7.8 fL (7.4-11.4); MONOCYTES # (AUTO) 0.5 10^3/uL (0.0-1.0); MONOCYTES % (AUTO) 9.7 %; NEUTROPHILS # (AUTO) 3.2 10^3/uL (1.5-6.6); RED BLOOD COUNT 3.88 10^6/uL (4.70-6.10); RED CELL DISTRIBUTION WIDTH 13.5 % (12.0-15.0)
[2016-10-23 05:34] LABS: ALBUMIN/GLOBULIN RATIO 1.5 (1.0-2.2); BILIRUBIN,TOTAL 0.2 mg/dL (0.2-1.0); CALCIUM 7.9 mg/dL (8.5-10.3); CREATININE 0.8 mg/dL (0.6-1.2); TOTAL PROTEIN 4.8 g/dL (6.7-8.2)
[2016-10-23] MEDS: SODIUM CHLORIDE 0.9% 1,000 ML IV SCH (06:33)
[2016-10-23] MEDS: SODIUM CHLORIDE FLUSH 0.9% 10 ML SYRINGE IVP SCH ×2 (06:34→14:54)
[2016-10-23] MEDS ORDERED: PANTOPRAZOLE 40 MG TABLET PO SCH (07:00)
[2016-10-23] MEDS ORDERED: POLYETHYLENE GLYCOL 3350 17 GM PACKET PO SCH (09:00)
[2016-10-23] MEDS ORDERED: ENOXAPARIN 40 MG/0.4 ML SYRINGE SUBQ SCH (09:00)
--- NOTE | 2016-10-23 12:43 | PROVIDER PROGRESS NOTE ---
Assessment/Plan - Problem List (1) Syncope Qualifiers: Syncope type: unspecified Qualified Code(s): R55 - Syncope and collapse Assessment/Plan: (1) Syncope Conclusion/Plan: Patient presented to the emergency department after a syncopal episode. Episode occurred while the patient was sitting on the couch he began to stare off and became unresponsive. The patient did respond to atropine and IV fluid. When found by paramedics he was hypotensive and bradycardic. After the event the patient did have a short period of confusion and was incontinent of stool. Patient likely had vasovagal syncope, has hx of vasovagal syncope with detailed description of an operation and the sight of blood. Plan: Placed in observation and monitor Telemetry monitoring SB rate 40-70 Echocardiogram pending Carotid Doppler - no significant stenosis Recommend followup with Cardiology for a Zio patch d/w Dr Gibbons pt's pcp (2) Abdominal tenderness Resolved Conclusion/Plan: Present initially when patient arrived in the emergency department Patient had associated nausea Both abdominal tenderness and nausea have resolved (3) Hypertension Conclusion/Plan: Patient was hypotensive at home after syncopal episode. He is no longer on any antihypertensive medications. BP improved with IVF (4) Hyperlipidemia Conclusion/Plan: Patient is on Pravachol at home Stable Place on Lipitor while hospitalized. (5) Tobacco abuse Conclusion/Plan: Patient counselled on need to quit smoking Patient understands the risks involved with continued tobacco abuse Offered nicotine patch (6) Prophylactic use of low molecular weight heparin for venous thromboembolism Conclusion/Plan: Lovenox while hospitalized # HEARING IMPAIRED. unable to hear if not wearing hearing aids - Current Meds Current Meds: Current Medications Generic Name Dose Route Start Last Admin Trade Name Taz PRN Reason Stop Dose Admin Atorvastatin Calcium 80 mg 10/22/16 21:00 10/22/16 21:20 Lipitor PO 80 mg QPM FREDDY Administration Enoxaparin Sodium 40 mg 10/23/16 09:00 10/23/16 11:40 Lovenox SUBQ 40 mg DAILY FREDDY Administration Sodium Chloride 1,000 mls @ 100 mls/hr 10/22/16 20:00 10/23/16 06:33 Normal Saline 0.9% IV 100 mls/hr .Q10H FREDDY Administration Pantoprazole Sodium 40 mg 10/23/16 07:00 10/23/16 06:34 Protonix PO 40 mg QDAC FREDDY Administration Polyethylene Glycol 17 gm 10/23/16 09:00 10/23/16 11:17 Miralax PO Not Given DAILY FREDDY Sodium Chloride 10 ml 10/22/16 22:00 10/23/16 06:34 Normal Saline Flush 0.9% IVP 10 ml Q8HR FREDDY Administration - Lab Result Fish Bone Diagrams: 10/23/16 04:40 10/23/16 04:40 - Additional Planning My Orders: My Active Orders 10/23/16 Evaluate and Treat OT [OT] Routine Evaluate and Treat PT [PT] Routine 10/23/16 09:41 ED Orthostatic VS ONCE Subjective - Subjective Patient Reports: Resting Comfortably, No Complaints (pt denies feeling dizzy or light. hx of syncope with sight of blood and at one point during detailed description of operation. pt was holding a cat while his was clipping it' s hair.) Objective Vital Signs: Vital Signs - 24 hr 10/22/16 10/22/16 10/23/16 20:34 20:55 00:15 Temperature 36.5 C 36.9 C Heart Rate 58 L Heart Rate [ 63 58 L Brachial] Heart Rate [ Sitting] Heart Rate [ Standing] Heart Rate [ Supine] Respiratory 14 18 16 Rate Blood Pressure 131/62 H Blood Pressure 150/71 H 115/64 [Left Brachial artery] Blood Pressure [Sitting] Blood Pressure [Standing] Blood Pressure [Supine] O2 Saturation 97 94 94 10/23/16 10/23/16 10/23/16 02:05 06:00 07:59 Temperature 36.5 C 36.8 C Heart Rate Heart Rate [ 57 L 53 L 56 L Brachial] Heart Rate [ Sitting] Heart Rate [ Standing] Heart Rate [ Supine] Respiratory 18 16 14 Rate Blood Pressure Blood Pressure 112/60 122/74 124/67 [Left Brachial artery] Blood Pressure [Sitting] Blood Pressure [Standing] Blood Pressure [Supine] O2 Saturation 94 93 93 10/23/16 10/23/16 09:41 11:00 Temperature 36.9 C Heart Rate Heart Rate [ 57 L Brachial] Heart Rate [ 59 L Sitting] Heart Rate [ 56 L Standing] Heart Rate [ 64 Supine] Respiratory 18 Rate Blood Pressure Blood Pressure 120/96 H [Left Brachial artery] Blood Pressure 128/58 L [Sitting] Blood Pressure 126/67 [Standing] Blood Pressure 107/58 L [Supine] O2 Saturation 94 Oxygen O2 Source Room air I&O (Last 24 Hrs): Intake and Output Totals x24h 10/21/16 10/22/16 10/23/16 23:59 23:59 23:59 Intake Total 320 1814 Output Total 275 475 Balance 45 1339 General: Oriented x3 (very hard of hearing w/o hearing aids) Cardiovascular: Regular rate (mane) Abdomen: Normal bowel sounds, No tenderness, No masses Extremities: No edema, No tenderness/swelling - Results Results: Laboratory Results WBC 5.0 x10^3/uL (4.8-10.8) 10/23/16 04:40 RBC 3.88 10^6/uL (4.70-6.10) L 10/23/16 04:40 Hgb 11.9 g/dL (14.0-18.0) L 10/23/16 04:40 Hct 35.2 % (42.0-52.0) L 10/23/16 04:40 MCV 90.6 fL (80.0-94.0) 10/23/16 04:40 MCH 30.7 pg (27.0-31.0) 10/23/16 04:40 MCHC 33.9 g/dL (32.0-36.0) 10/23/16 04:40 RDW 13.5 % (12.0-15.0) 10/23/16 04:40 Plt Count 135 10^3/uL (130-450) 10/23/16 04:40 MPV 7.8 fL (7.4-11.4) 10/23/16 04:40 Neut # 3.2 10^3/uL (1.5-6.6) 10/23/16 04:40 Lymph # 1.2 10^3/uL (1.5-3.5) L 10/23/16 04:40 Swift # 0.5 10^3/uL (0.0-1.0) 10/23/16 04:40 Eos # 0.1 10^3/uL (0.0-0.7) 10/23/16 04:40 Baso # 0.0 10^3/uL (0.0-0.1) 10/23/16 04:40 Absolute Nucleated RBC 0.00 x10^3/uL 10/23/16 04:40 Nucleated RBCs 0.0 /100WBC 10/23/16 04:40 PT 10.7 secs (9.9-12.6) 10/22/16 15:28 INR 1.0 (0.8-1.2) 10/22/16 15:28 APTT 22.7 secs (24.9-33.3) L 10/22/16 15:28 Sodium 139 mmol/L (135-145) 10/23/16 04:40 Potassium 4.0 mmol/L (3.5-5.0) 10/23/16 04:40 Chloride 112 mmol/L (101-111) H 10/23/16 04:40 Carbon Dioxide 22 mmol/L (21-32) 10/23/16 04:40 Anion Gap 5.0 (6-13) L 10/23/16 04:40 BUN 24 mg/dL (6-20) H 10/23/16 04:40 Creatinine 0.8 mg/dL (0.6-1.2) 10/23/16 04:40 Estimated GFR (MDRD) 91 (>89) 10/23/16 04:40 Glucose 99 mg/dL (70-100) 10/23/16 04:40 Lactic Acid 1.0 mmol/L (0.5-2.2) 10/22/16 15:28 Calcium 7.9 mg/dL (8.5-10.3) L 10/23/16 04:40 Magnesium 2.0 mg/dL (1.7-2.8) 10/22/16 15:28 Total Bilirubin 0.2 mg/dL (0.2-1.0) 10/23/16 04:40 AST 24 IU/L (10-42) 10/23/16 04:40 ALT 16 IU/L (10-60) 10/23/16 04:40 Alkaline Phosphatase 64 IU/L (42-121) 10/23/16 04:40 Total Creatine Kinase 152 IU/L (22-269) 10/22/16 15:28 CK-MB (CK-2) 8.7 ng/mL (0.6-6.3) H 10/22/16 15:28 Troponin I < 0.04 ng/mL (<0.49) 10/23/16 04:40 B-Natriuretic Peptide 43 pg/mL (5-100) 10/22/16 15:28 Total Protein 4.8 g/dL (6.7-8.2) L 10/23/16 04:40 Albumin 2.9 g/dL (3.2-5.5) L 10/23/16 04:40 Globulin 1.9 g/dL (2.1-4.2) L 10/23/16 04:40 Albumin/Globulin Ratio 1.5 (1.0-2.2) 10/23/16 04:40 Lipase 17 U/L (22-51) L 10/22/16 15:28 Urine Color YELLOW 10/22/16 17:05 Urine Clarity CLEAR (CLEAR) 10/22/16 17:05 Urine pH 7.5 PH (5.0-7.5) 10/22/16 17:05 Ur Specific [place] 1.015 (1.002-1.030) 10/22/16 17:05 Urine Protein NEGATIVE mg/dL (NEGATIVE) 10/22/16 17:05 Urine Glucose (UA) NEGATIVE mg/dL (NEGATIVE) 10/22/16 17:05 Urine Ketones NEGATIVE mg/dL (NEGATIVE) 10/22/16 17:05 Urine Occult Blood NEGATIVE (NEGATIVE) 10/22/16 17:05 Urine Nitrite NEGATIVE (NEGATIVE) 10/22/16 17:05 Urine Bilirubin NEGATIVE (NEGATIVE) 10/22/16 17:05 Urine Urobilinogen 0.2 (NORMAL) E.U./dL (NORMAL) 10/22/16 17:05 Ur Leukocyte Esterase NEGATIVE (NEGATIVE) 10/22/16 17:05 Ur Microscopic Review NOT INDICATED 10/22/16 17:05 Urine Culture Comments NOT INDICATED 10/22/16 17:05 Ethyl Alcohol < 5.0 mg/dL 10/22/16 15:28
[2016-10-23 14:11] VITALS: BP 113/64
--- NOTE | 2016-10-23 15:06 | Discharge Plan ---
Discharge Plan Disposition: 01 Home, Self Care Condition: Stable Diet: Regular Activity Restrictions: No Restrictions Additional Instructions or Follow Up instructions: follow up with your PCP - consider referral to cardiology for ZIOPATCH to see if your heart rate is too low. No Smoking: If you smoke, Please STOP! Call for help.
--- NOTE | 2016-10-23 22:10 | DISCHARGE SUMMARY ---
DATE OF ADMISSION: 10/22/2016 DATE OF DISCHARGE: 10/23/2016 REASON FOR ADMISSION: Syncope. DISCHARGE DIAGNOSES 1. Syncope due to vasovagal versus symptomatic bradycardia. 2. Abdominal tenderness. 3. Hypertension. 4. Hyperlipidemia. 5. Tobacco dependence. HOSPITAL COURSE 1. Syncope. Patient presented to the emergency department after a syncopal episode. Episode occurr ed while the patient was sitting on a couch. He began to stare off and became unresponsive. The pat ient did respond to atropine and IV fluid. When found by paramedics, he was hypotensive and bradycar dic. After the event, the patient did have a short period of confusion but was back to baseline on a rrival to the emergency department. CT head was negative. He was admitted for observation and monit ored on telemetry. His heart rate has ranged from the mid 40s to 70. He ambulated with [employer] apy, was asymptomatic with a heart rate in the upper 40s. Carotid ultrasound without evidence of hem odynamically significant stenosis. 2. Abdominal tenderness. Once patient was more responsive after his syncopal event, he had abdomina l discomfort and had a loose incontinent stool. CT of the abdomen and pelvis was unremarkable. The following morning, the patient denied abdominal pain, was tolerating a regular diet, and had a normal bowel movement prior to discharge. 3. Hypertension. Patient was found to be hypotensive and has had low normal blood pressure througho ut his hospital course. He was not orthostatic. He had previously been on antihypertensive therapy, which were discontinued. 4. Hyperlipidemia, continued on statins. 5. Tobacco dependence. Counseled patient to quit smoking. 6. Deep venous thrombosis prophylaxis. Lovenox while in the hospital. DISCHARGE MEDICATIONS Continue: 1. Pravastatin. 2. Polyethylene glycol. Patient should not be taking lisinopril, metoprolol, which were on his prior medication lists. Discussed with patient's primary care provider admission diagnosis and findings. He does not have ev idence for symptomatic bradycardia at this time but may benefit from a ZIO patch to determine if he i s having episodes of bradycardia which could be causing his symptoms. JOB #: [id number] EXT JOB #:[id number]
== END 2016-10-23 15:00 | disposition home or self-care (01) ==
LOC: ED 15:22 → MS 19:49
PROVIDERS: ADMIT Internal Medicine; ATTEND Internal Medicine
DX: R55 Syncope and collapse (principal); R10.9 Unspecified abdominal pain; R11.0 Nausea; I10 Essential (primary) hypertension; E78.00 Pure hypercholesterolemia, unspecified; H91.90 Unspecified hearing loss, unspecified ear; Z96.21 Cochlear implant status; M17.0 Bilateral primary osteoarthritis of knee; F17.290 Nicotine dependence, other tobacco product, uncomplicated; E78.5 Hyperlipidemia, unspecified; Z79.899 Other long term (current) drug therapy
CPT/HCPCS: 36415; 70450; 71010; 74177; 76700; 80053; 81003; 82550; 82553; 83605; 83690; 83735; 83880; 84484; 85025; 85610; 85730; 93005; 93306; 93880; 96361; 96374; 97116; 97161; 97165; 99284; 99285; A9270; G0378; G0480; G8978; G8979; G8980; G8986; G8987; G8988; J1650; Q9967; 80320; 81001; 87086; 96372

== ENCOUNTER 2017-01-02 10:58 | Outpatient (CLI) | payer MEDICARE, OTHER ==
[2017-01-02] MEDS ORDERED: ADENOSINE 60 MG/20 ML VIAL IVP SCH (12:30)
[2017-01-02 15:16] VITALS: BP 138/72
--- NOTE | 2017-01-02 15:21 | Nuclear Medicine Prelim Report ---
Exam: NM Myocardial Perfusion STR/RST IMPRESSION: 1. No scintigraphic findings to indicate myocardial ischemia. Negative for infarct. 2. Normal left ventricular ejection fraction of 62%. 3. Normal segmental and global wall motion. 4. Normal left ventricular cavity size, no change with stress. SHALINIA The call report notification system was initiated by Dr. Juan Goddard at 15:15 hrs on 01/02/17. The above findings were discussed with Dr. Gibbons by Dr. Juan Goddard at 15:19 hrs on 01/02/17. SITE ID: [id number]
--- NOTE | 2017-01-02 15:23 | Nuclear Medicine Report ---
EXAM: SINGLE-ISOTOPE PHARMACOLOGICAL STRESS TEST WITH ADENOSINE. SINGLE-ISOTOPE AND SAME-DAY REST/STRESS MY OCARDIAL PERFUSION SCANS WITH TOMOGRAPHIC IMAGING, QUANTITATIVE ANALYSIS, WALL MOTION ANALYSIS AND CA LCULATION OF EJECTION FRACTION. EXAM DATE: 01/02/2017 11:37 AM. CLINICAL HISTORY: SYNCOPE. COMPARISON: None. TECHNIQUE: Following the intravenous administration of 8.9 mCi of Tc-99m sestamibi, a rest myocardial perfusion scan was done with tomography. Motion correction was applied when appropriate. After a delay of several hours on the same day, a pharmacological stress was performed with the infus ion of 55.8 mg of adenosine. According to protocol, 41.9 mCi of Tc-99m sestamibi was injected for str ess myocardial perfusion scan. Stress myocardial perfusion was done with tomography without attenuati on correction. Motion correction was applied when appropriate. Gated tomographic images were obtained for wall motion analysis and computation of left ventricular ejection fraction. FINDINGS: Apical thinning is present, slightly less prominent on the stress images compared to the re st images. No reversible perfusion defects. No focal wall motion abnormality. The left ventricular end-diastolic volume is 91 cc. The left ventricular end-systolic volume is 34 cc . The left ventricular ejection fraction is calculated to be 62%. IMPRESSION: 1. No scintigraphic findings to indicate myocardial ischemia. Negative for infarct. 2. Normal left ventricular ejection fraction of 62%. 3. Normal segmental and global wall motion. 4. Normal left ventricular cavity size, no change with stress. RADIA The call report notification system was initiated by Dr. Juan Goddard at 15:15 hrs on 01/02/17. The above findings were discussed with Dr. Gibbons by Dr. Juan Goddard at 15:19 hrs on 01/02/17. Referring Provider Line: [phone] SITE ID: [id number]
--- NOTE | 2017-01-03 03:06 | CARDIAC PROCEDURE NOTE ---
DATE OF SERVICE: 01/02/2017 00:00:00 PROCEDURE: Adenosine infusion for sestamibi myocardial imaging. INDICATIONS 89-year-old male with chest discomfort. PROCEDURE: The patient received adenosine and sestamibi per nuclear medicine protocol without inciden t. He experienced no untoward side effects, unstable vital signs or EKG changes. IMPRESSION: Unremarkable infusion of adenosine for sestamibi myocardial imaging. See nuclear medicine report for details. JOB #: [id number] EXT JOB #:[id number]
== END 2017-01-02 10:59 | disposition home or self-care (01) ==
LOC: DI 10:58
PROVIDERS: ATTEND Internal Medicine Cardiovascular Disease
DX: R55 Syncope and collapse (principal)
CPT/HCPCS: 78452; 93017; A9500; J0153

== ENCOUNTER 2017-03-12 08:00 | Outpatient (CLI) | payer MEDICARE, OTHER ==
[2017-03-12 17:10] LABS: BASOPHILS % (AUTO) 0.7 %; EOSINOPHILS # (AUTO) 0.1 10^3/uL (0.0-0.7); EOSINOPHILS % (AUTO) 1.9 %; HCT - HEMATOCRIT 46.4 % (42.0-52.0); HGB - HEMOGLOBIN 15.1 g/dL (14.0-18.0); LYMPHOCYTES # (AUTO) 2.3 10^3/uL (1.5-3.5); LYMPHOCYTES % (AUTO) 40.4 %; MEAN CORPUSCULAR HEMOGLOBIN 29.6 pg (27.0-31.0); MEAN CORPUSCULAR HGB CONC 32.6 g/dL (32.0-36.0); MEAN CORPUSCULAR VOLUME 90.8 fL (80.0-94.0); MEAN PLATELET VOLUME 8.5 fL (7.4-11.4); MONOCYTES # (AUTO) 0.5 10^3/uL (0.0-1.0); MONOCYTES % (AUTO) 9.1 %; NEUTROPHILS # (AUTO) 2.7 10^3/uL (1.5-6.6); NEUTROPHILS % (AUTO) 47.9 %; NUCLEATED RED BLOOD CELLS AUTO 0.2 /100WBC; RED BLOOD COUNT 5.11 10^6/uL (4.70-6.10); RED CELL DISTRIBUTION WIDTH 13.7 % (12.0-15.0); UNCORRECTED WHITE BLOOD COUNT 5.6 x10^3/uL; WHITE BLOOD COUNT 5.6 x10^3/uL (4.8-10.8)
[2017-03-12 17:21] LABS: BILIRUBIN,TOTAL 0.4 mg/dL (0.2-1.0); CALCIUM 9.3 mg/dL (8.5-10.3); CREATININE 0.9 mg/dL (0.6-1.2); POTASSIUM 4.2 mmol/L (3.5-5.0); TOTAL PROTEIN 6.3 g/dL (6.7-8.2)
== END 2017-03-12 08:01 | disposition home or self-care (01) ==
LOC: LAB.R 08:00
PROVIDERS: ATTEND Internal Medicine
DX: R55 Syncope and collapse (principal)
CPT/HCPCS: 80053; 85025

== ENCOUNTER 2017-06-07 08:00 | Outpatient (CLI) | payer MEDICARE, OTHER ==
[2017-06-07 14:27] LABS: BASOPHILS % (AUTO) 0.6 %; EOSINOPHILS # (AUTO) 0.1 10^3/uL (0.0-0.7); EOSINOPHILS % (AUTO) 1.6 %; HGB - HEMOGLOBIN 14.4 g/dL (14.0-18.0); LYMPHOCYTES # (AUTO) 1.8 10^3/uL (1.5-3.5); LYMPHOCYTES % (AUTO) 33.7 %; MEAN CORPUSCULAR HEMOGLOBIN 29.6 pg (27.0-31.0); MEAN CORPUSCULAR HGB CONC 32.7 g/dL (32.0-36.0); MEAN CORPUSCULAR VOLUME 90.4 fL (80.0-94.0); MEAN PLATELET VOLUME 8.2 fL (7.4-11.4); MONOCYTES # (AUTO) 0.6 10^3/uL (0.0-1.0); MONOCYTES % (AUTO) 10.4 %; NEUTROPHILS # (AUTO) 2.9 10^3/uL (1.5-6.6); NEUTROPHILS % (AUTO) 53.7 %; PLT - PLATELET COUNT 212 10^3/uL (130-450); RED BLOOD COUNT 4.86 10^6/uL (4.70-6.10); RED CELL DISTRIBUTION WIDTH 14.2 % (12.0-15.0); WHITE BLOOD COUNT 5.4 x10^3/uL (4.8-10.8)
[2017-06-07 14:42] LABS: ALBUMIN 4.1 g/dL (3.2-5.5); ALBUMIN/GLOBULIN RATIO 2.2 (1.0-2.2); BILIRUBIN,TOTAL 0.9 mg/dL (0.2-1.0); CALCIUM 9.3 mg/dL (8.5-10.3); CREATININE 0.8 mg/dL (0.6-1.2)
[2017-06-07 15:14] LABS: HB2 TOTAL 15.6 g/dL; HEMOGLOBIN A1C 0.64 g/dL; HEMOGLOBIN A1C % 5.9 % (4.6-6.2)
== END 2017-06-07 08:01 | disposition home or self-care (01) ==
LOC: LAB.R 08:00
PROVIDERS: ATTEND Internal Medicine
DX: R03.0 Elevated blood-pressure reading, without diagnosis of hypertension (principal); Z79.899 Other long term (current) drug therapy
CPT/HCPCS: 80053; 83036; 85025